=== PATIENT | male | born 1995 | race African-American/Black ===

== ENCOUNTER 2022-07-19 17:51 | Emergency (ER) | payer OTHER ==
[~2022-07-19] VITALS: Ht 180.3 cm; Wt 77.1 kg
[~2022-07-19 17:51] MED LIST: NO REPORTABLE MEDS
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
--- NOTE | 2022-07-19 18:45 | NUR ---
AWAITING EVALUATION BY ER PROVIDER.
[2022-07-19] MEDS ORDERED: KETOROLAC TROMETHAMINE 15 MG/ML VIAL ONE (19:00)
[2022-07-19] MEDS ORDERED: KETOROLAC TROMETHAMINE INJ 30 MG/ML VIAL IM ONE (19:00)
--- NOTE | 2022-07-19 19:38 | NUR ---
HAND OFF IDA RIBERA
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
[2022-07-19] MEDS ORDERED: IBUP-1955 PO (20:28)
[2022-07-19] MEDS ORDERED: HYDR-4209 PO (20:28)
--- NOTE | 2022-07-19 20:43 | NUR ---
Patient discharged to home in stable condition. Written and verbal after care instructions given. Patient verbalizes understanding of instruction. pt ambulatory with a steady gait
--- NOTE | 2022-07-19 21:27 | NUR ---
Patient discharged to home in stable condition. Written and verbal after care instructions given. Patient verbalizes understanding of instruction.
[2022-07-19 21:33] VITALS: BP 127/73
== END 2022-07-19 21:33 | disposition home or self-care (01) ==
LOC: ER 17:56
DX: S62.336A Displaced fracture of neck of fifth metacarpal bone, right hand, initial encounter for closed fracture (principal); F17.200 Nicotine dependence, unspecified, uncomplicated; W22.8XXA Striking against or struck by other objects, initial encounter; Y93.89 Activity, other specified; Y92.89 Other specified places as the place of occurrence of the external cause; Y99.8 Other external cause status
CPT/HCPCS: 99284; 26605; 96372; 73130; J1885

== ENCOUNTER 2024-06-27 23:49 | Emergency (ER) | payer OTHER ==
[~2024-06-27] VITALS: Ht 175.3 cm; Wt 68.0 kg
[~2024-06-27 23:49] MED LIST changes: +HYDR-4209 PO; +IBUP-1955 PO
[2024-06-28] MEDS ORDERED: TDAP [DIPH/PERTUSSIS/TET] 0.5 ML VIAL IM ONE (00:12)
[2024-06-28] MEDS ORDERED: KETOROLAC TROMETHAMINE INJ 30 MG/ML VIAL ONE (00:13)
[2024-06-28] MEDS: TDAP [DIPH/PERTUSSIS/TET] 0.5 ML VIAL IM ONE (00:17)
[2024-06-28] MEDS: KETOROLAC TROMETHAMINE INJ 30 MG/ML VIAL IV ONE (00:59)
[2024-06-28] MEDS ORDERED: MORPHINE SULFATE INJ 2 MG/ML DISP.SYRIN ONE (01:09)
[2024-06-28] MEDS ORDERED: LORAZEPAM INJ 2 MG/ML VIAL ONE ×2 (01:10→02:44)
[2024-06-28] MEDS: LORAZEPAM INJ 2 MG/ML VIAL IV ONE ×2 (01:17→02:50)
[2024-06-28] MEDS: MORPHINE SULFATE INJ 2 MG/ML DISP.SYRIN IV ONE (01:17)
[2024-06-28] MEDS ORDERED: PROPOFOL 20 ML IV ONE (04:02)
[2024-06-28] MEDS: PROPOFOL 200 MG/20 ML VIAL IV ONE (04:03)
[2024-06-28 05:03] LABS: BASOPHILS % (AUTO) 0.3 % (0.0-2.0); EOSINOPHILS % (AUTO) 0.1 % (0.0-6.0); HEMATOCRIT 37 % (39-51); HEMOGLOBIN 12.6 g/dL (13.5-17.5); LYMPHOCYTES # (AUTO) 0.6 K/uL (0.8-4.8); LYMPHOCYTES % (AUTO) 5.7 % (20.0-44.0); MEAN CORPUSCULAR HEMOGLOBIN 31 PG (26.0-33.0); MEAN CORPUSCULAR HGB CONC 34 g/dl (31.0-36.0); MEAN CORPUSCULAR VOLUME 89 fL (80-96); MONOCYTES # (AUTO) 0.4 K/uL (0.1-1.30); MONOCYTES % (AUTO) 3.9 % (2.0-12.0); NEUTROPHILS # (AUTO) 9.9 K/uL (1.8-8.9); PLATELET COUNT (AUTO) 201 K/uL (150-450); RED BLOOD CELL COUNT(AUTO) 4.11 MIL/uL (4.5-6.0); WHITE BLOOD COUNT (AUTO) 10.9 K/uL (4.3-11.0)
[2024-06-28 05:10] LABS: INR 1.03 (0.91-1.10); PARTIAL THROMBOPLASTIN TIME 24.3 SEC (24.3-34.3); PROTHROMBIN TIME 10.9 SECS (9.2-11.1)
[2024-06-28 05:13] LABS: ALANINE AMINOTRANSFERASE 18 U/L (12-78); ALBUMIN 3.6 g/dL (3.4-5.0); ALCOHOL, BLOOD < 3 mg/dL (0-10); ALKALINE PHOSPHATASE 80 U/L (46-116); ASPARTATE AMINOTRANSFERASE 22 U/L (15-37); BILIRUBIN,TOTAL 0.4 mg/dL (0.2-1.0); CARBON DIOXIDE 30 mmol/L (21-32); CHLORIDE 107 mmol/L (98-107); GLUCOSE 110 mg/dL (74-106); POTASSIUM 4.5 mmol/L (3.5-5.1); SODIUM SERUM 141 mmol/L (136-145); TOTAL PROTEIN, SERUM 6.4 g/dL (6.4-8.2); UREA NITROGEN, BLOOD 11 mg/dL (7-18)
[2024-06-28] MEDS ORDERED: NAPR-1009 PO (05:54)
[2024-06-28 08:17] VITALS: BP 122/66; TEMP 98; O2SAT 99
== END 2024-06-28 08:17 | disposition home or self-care (01) ==
LOC: ER 23:50
DX: S73.014A Posterior dislocation of right hip, initial encounter (principal); S00.81XA Abrasion of other part of head, initial encounter; F17.200 Nicotine dependence, unspecified, uncomplicated; R51.9 Headache, unspecified; Z87.39 Personal history of other diseases of the musculoskeletal system and connective tissue; Z65.3 Problems related to other legal circumstances; V43.52XA Car driver injured in collision with other type car in traffic accident, initial encounter; Y93.89 Activity, other specified; Y92.488 Other paved roadways as the place of occurrence of the external cause; Y99.8 Other external cause status
CPT/HCPCS: 27250; 36415; 70450; 72192; 73501; 73552; 73590; 73620; 74176; 80053; 80320; 85025; 85610; 85730; 96374; 96375; 96376; 99152; 99285; A6403; J1885; J2060; J2270; J2704; J7030; 90715; G0480; G0500

== ENCOUNTER 2024-07-28 09:41 | Emergency (ER) | payer OTHER ==
[~2024-07-28] VITALS: Ht 180.3 cm; Wt 77.1 kg
[~2024-07-28 09:41] MED LIST changes: +NAPR-1009 PO
[2024-07-28] MEDS ORDERED: KETOROLAC TROMETHAMINE INJ 30 MG/ML VIAL ONE (10:06)
[2024-07-28] MEDS: KETOROLAC TROMETHAMINE INJ 30 MG/ML VIAL IM ONE (10:24)
[2024-07-28] MEDS: IBUPROFEN 400 MG TABLET PO ONE (10:27)
[2024-07-28 10:45] VITALS: BP 141/77; TEMP 98; O2SAT 97
[2024-07-28] MEDS ORDERED: IBUPROFEN 400 MG TABLET ONE (11:08)
== END 2024-07-28 11:14 | disposition left against medical advice (07) ==
LOC: ER 09:49
DX: M25.551 Pain in right hip (principal); F17.200 Nicotine dependence, unspecified, uncomplicated; Z87.81 Personal history of (healed) traumatic fracture; W10.8XXA Fall (on) (from) other stairs and steps, initial encounter; Y93.89 Activity, other specified; Y92.89 Other specified places as the place of occurrence of the external cause; Y99.8 Other external cause status
CPT/HCPCS: 73700-TC; J1885